=== PATIENT | female | born 1960 | race African-American/Black ===

== ENCOUNTER 2021-01-26 23:48 | Inpatient (IN) | payer OTHER ==
[~2021-01-26] VITALS: Ht 157.5 cm; Wt 62.7 kg
[2021-01-27] VITALS (9 sets, daily range): BP systolic 102–126; BP diastolic 59–92
[2021-01-27] MEDS ORDERED: ONDANSETRON HCL 4MG/2ML INJ IV STA (00:48)
[2021-01-27] MEDS ORDERED: MORPHINE SULFATE 4 MG/ML CPJ (NOT FOR IM USE) IV STA (00:48)
[2021-01-27 01:16] LABS: BASOPHILS % 0.9 % (0.0-2.0); EOSINOPHILS % 0.5 % (0.0-5.0); HEMATOCRIT. 32.8 % (36.0-48.0); HEMOGLOBIN. 10.5 g/dL (12.0-16.0); MEAN CORPUSCULAR HEMOGLOBIN 30.2 pg (28.0-32.0); MEAN CORPUSCULAR VOLUME 94.4 fL (81.0-99.0); MEAN PLATELET VOLUME 7.8 fl (7.4-10.4); MONOCYTES % 13.3 % (2.0-8.0); NEUTROPHILS % 51.3 % (40.0-76.0); PLATELET 410 x1000/uL (130-400); RED BLOOD CELL COUNT 3.47 mill/uL (4.2-5.4); RED CELL DISTRIBUTION WIDTH 15.2 % (11.6-14.6)
[2021-01-27 01:21] LABS: CHLORIDE 112 mEq/L (98-107)
[2021-01-27 03:02] LABS: D-DIMER 5.53 mg/L FEU (<0.50); INR 1.1; PARTIAL THROMBOPLASTIN TIME 29.6 sec (23.4-31.0); PROTHROMBIN TIME 12.1 sec (9.6-11.0)
[2021-01-27] MEDS ORDERED: NITROGLYCERIN OINT 1GM/INCH UDPKT TD ONE (03:30)
[2021-01-27] MEDS ORDERED: FUROSEMIDE 40MG/4ML VIAL IV ONE (03:30)
[2021-01-27] MEDS ORDERED: ASPIRIN 81MG TABLET PO ONE (03:30)
[2021-01-27] MEDS ORDERED: ENOXAPARIN 80MG/0.8ML SYR SUBCUT ONE (05:15)
[2021-01-27] MEDS ORDERED: IOHEXOL-350 100 ML BOTTLE ONE (07:24)
[2021-01-27 10:40] LABS: T4 FREE 0.74 ng/dL (0.76-1.46)
[2021-01-27] MEDS: CLOPIDOGREL 75MG TABLET PO SCH (11:18)
[2021-01-27] MEDS ORDERED: ACETAMINOPHEN 325MG TABLET PO PRN (13:15)
[2021-01-27] MEDS ORDERED: LEVOFLOXACIN 500MG PREMIX 100 ML IV SCH (13:15)
[2021-01-27] MEDS ORDERED: IPRATROPIUM/ALBUTEROL 0.5-3(2.5)MG/3ML NEB HHN PRN (13:15)
[2021-01-27] MEDS ORDERED: MORPHINE SULFATE 2 MG/ML CPJ (NOT FOR IM USE) IV PRN (13:15)
[2021-01-27] MEDS ORDERED: ONDANSETRON HCL 4MG/2ML INJ IV PRN (13:15)
[2021-01-27] MEDS ORDERED: ACETAMINOPHEN 650MG SUPP PR PRN (13:15)
[2021-01-27] MEDS ORDERED: LORAZEPAM 2MG/ML CPJ IV PRN (13:15)
[2021-01-27] MEDS ORDERED: HYDRALAZINE 20MG/ML VIAL IV PRN (13:15)
[2021-01-27] MEDS ORDERED: LACTULOSE 20G/30ML UDC PO PRN (13:15)
[2021-01-27] MEDS ORDERED: BISACODYL 10MG SUPP PR PRN (13:15)
[2021-01-27] MEDS: FUROSEMIDE 40MG/4ML VIAL IVP SCH (14:45)
[2021-01-27] MEDS: FAMOTIDINE 20MG/2ML VIAL IV SCH (14:46)
[2021-01-27] MEDS: LEVOTHYROXINE SODIUM 75MCG TABLET PO SCH (14:46)
[2021-01-27] MEDS ORDERED: LEVOFLOXACIN 750MG PREMIX 150 ML IV SCH (15:00)
[2021-01-27 15:24] LABS: BASOPHILS % 0.7 % (0.0-2.0); EOSINOPHILS % 0.2 % (0.0-5.0); HEMOGLOBIN. 10.5 g/dL (12.0-16.0); LYMPHOCYTES % 25.2 % (20.0-50.0); MEAN CORPUSCULAR HEMOGLOBIN 30.2 pg (28.0-32.0); MEAN CORPUSCULAR VOLUME 97.9 fL (81.0-99.0); MONOCYTES % 10.4 % (2.0-8.0); NEUTROPHILS % 63.5 % (40.0-76.0); PLATELET 359 x1000/uL (130-400); RED BLOOD CELL COUNT 3.47 mill/uL (4.2-5.4); RED CELL DISTRIBUTION WIDTH 16.1 % (11.6-14.6)
[2021-01-27 15:37] LABS: BG BASE EXCESS -4.6 mmol/L (-2.0-2.0); BG CARBOXYHEMOGLOBIN 0.2 % (0.5-1.5); BG FRACTION INSPIRED OXYGEN 21; BG METHEMOGLOBIN 0.2 % (0.0-1.5); BG OXYGEN SATURATION 72.9 % (92.0-98.5); BG OXYHEMOGLOBIN 72.6 % (94.0-97.0); BG PCO2 35.3 mmHg (35.0-45.0); BG PH 7.371 (7.350-7.450); BG PO2 42.5 mmHg (75.0-100.0); BG SAMPLE SITE RIGHT BRACHIAL; BG TOTAL HEMOGLOBIN 10.8 g/dL (12.0-18.0); BG VENT MODE ROOM AIR
[2021-01-27 15:41] LABS: CHLORIDE 110 mEq/L (98-107)
[2021-01-27 15:50] LABS: CREATINE KINASE 179 IU/L (26-192)
[2021-01-27 15:52] LABS: CREATINE KINASE MB FRACTION 6.1 ng/mL (0.5-3.6)
[2021-01-27] MEDS: IPRATROPIUM/ALBUTEROL 0.5-3(2.5)MG/3ML NEB HHN SCH (20:30)
[2021-01-27] MEDS: METOPROLOL TARTRATE 25MG TABLET PO SCH (20:39)
[2021-01-27] MEDS: ATORVASTATIN CALCIUM 20MG TABLET PO SCH (20:39)
[2021-01-27] MEDS ORDERED: TEMAZEPAM 15MG CAPSULE PO PRN (21:00)
[2021-01-27 23:14] LABS: CLARITY URINE CLEAR (CLEAR); COLOR URINE YELLOW (YELLOW); KETONES URINE NEGATIVE (NEGATIVE); LEUKOCYTE ESTERASE URINE NEGATIVE (NEGATIVE); NITRITE URINE NEGATIVE (NEGATIVE); OCCULT BLOOD URINE NEGATIVE (NEGATIVE); PH URINE 5.5 (4.5-8.0); PROTEIN URINE TRACE (NEGATIVE); SPECIFIC GRAVITY URINE 1.015 (1.005-1.030); UROBILINOGEN URINE 0.2 E.U./dL (0.2-1.0)
[2021-01-27 23:35] LABS: CREATINE KINASE MB FRACTION 5.2 ng/mL (0.5-3.6)
[2021-01-28] VITALS (11 sets, daily range): BP systolic 92–117; BP diastolic 53–79
[2021-01-28] MEDS: IPRATROPIUM/ALBUTEROL 0.5-3(2.5)MG/3ML NEB HHN SCH ×4 (01:35→21:51)
[2021-01-28] MEDS: LEVOTHYROXINE SODIUM 75MCG TABLET PO SCH (05:39)
[2021-01-28 06:16] LABS: HEMATOCRIT. 29.7 % (36.0-48.0); HEMOGLOBIN. 9.5 g/dL (12.0-16.0); MEAN CORPUSCULAR HEMOGLOBIN 30.4 pg (28.0-32.0); MEAN PLATELET VOLUME 8.2 fl (7.4-10.4); PLATELET 328 x1000/uL (130-400); RED BLOOD CELL COUNT 3.12 mill/uL (4.2-5.4); RED CELL DISTRIBUTION WIDTH 15.7 % (11.6-14.6)
[2021-01-28 07:51] LABS: CREATINE KINASE MB FRACTION 3.6 ng/mL (0.5-3.6)
[2021-01-28] MEDS: ASPIRIN 81MG TABLET PO SCH (08:26)
[2021-01-28] MEDS: FAMOTIDINE 20MG/2ML VIAL IV SCH (08:26)
[2021-01-28] MEDS: CLOPIDOGREL 75MG TABLET PO SCH (08:26)
[2021-01-28] MEDS: FUROSEMIDE 40MG/4ML VIAL IVP SCH (08:26)
[2021-01-28] MEDS: METOPROLOL TARTRATE 25MG TABLET PO SCH ×2 (08:27→21:41)
[2021-01-28] MEDS ORDERED: ENOXAPARIN 40MG/0.4ML SYR SUBCUT SCH (09:00)
[2021-01-28 14:02] LABS: PLATELET ESTIMATE NORMAL
[2021-01-28] MEDS: ATORVASTATIN CALCIUM 20MG TABLET PO SCH (21:40)
[2021-01-29] VITALS (16 sets, daily range): BP systolic 94–136; BP diastolic 58–84
[2021-01-29] MEDS: IPRATROPIUM/ALBUTEROL 0.5-3(2.5)MG/3ML NEB HHN SCH ×4 (01:57→20:59)
[2021-01-29 05:48] LABS: HEMATOCRIT. 28.3 % (36.0-48.0); HEMOGLOBIN. 9.2 g/dL (12.0-16.0); MEAN CORPUSCULAR HEMOGLOBIN 30.2 pg (28.0-32.0); MEAN CORPUSCULAR VOLUME 93.4 fL (81.0-99.0); PLATELET 338 x1000/uL (130-400); RED BLOOD CELL COUNT 3.03 mill/uL (4.2-5.4)
[2021-01-29] MEDS ORDERED: LEVOTHYROXINE SODIUM 100MCG TABLET PO SCH (06:50)
[2021-01-29] MEDS: ASPIRIN 81MG TABLET PO SCH (08:00)
[2021-01-29] MEDS: FUROSEMIDE 40MG/4ML VIAL IVP SCH (08:00)
[2021-01-29] MEDS: CLOPIDOGREL 75MG TABLET PO SCH (08:01)
[2021-01-29] MEDS ORDERED: FAMOTIDINE 20MG TABLET PO SCH (09:00)
[2021-01-29] MEDS ORDERED: ENOXAPARIN 30MG/0.3ML SYR SUBCUT SCH (09:00)
[2021-01-29] MEDS: METOPROLOL TARTRATE 25MG TABLET PO SCH ×2 (09:00→21:27)
[2021-01-29] MEDS ORDERED: LEVOFLOXACIN 250MG TABLET PO SCH (09:00)
[2021-01-29 11:34] LABS: BG CARBOXYHEMOGLOBIN 0.3 % (0.5-1.5); BG DEOXYHEMOGLOBIN 4.1 % (0.0-5.0); BG HCO3 ACT 21.2 mmol/L (22.0-26.0); BG METHEMOGLOBIN 0.2 % (0.0-1.5); BG OXYGEN SATURATION 95.9 % (92.0-98.5); BG OXYHEMOGLOBIN 95.4 % (94.0-97.0); BG PCO2 27.6 mmHg (35.0-45.0); BG PH 7.504 (7.350-7.450); BG PO2 79.5 mmHg (75.0-100.0); BG SAMPLE SITE RIGHT RADIAL; BG TOTAL HEMOGLOBIN 10.6 g/dL (12.0-18.0); BG VENT MODE ROOM AIR
[2021-01-29] MEDS ORDERED: ASPI-1497 MT (13:39)
[2021-01-29] MEDS ORDERED: ALBU90AE INH (13:39)
[2021-01-29] MEDS ORDERED: CLOP-31 MT (13:39)
[2021-01-29] MEDS ORDERED: METO25TA6 PO (13:39)
[2021-01-29] MEDS ORDERED: ATOR20TA PO (13:39)
[2021-01-29] MEDS ORDERED: FAMO-135 PO (13:39)
[2021-01-29] MEDS ORDERED: LEVO250T58 MT (13:39)
[2021-01-29] MEDS ORDERED: LEVO100T MT (13:39)
[2021-01-29 14:11] LABS: PLATELET ESTIMATE NORMAL
[2021-01-29] MEDS: ATORVASTATIN CALCIUM 20MG TABLET PO SCH (21:26)
== END 2021-01-29 23:56 | disposition home health service (06) | DRG 190 ==
LOC: ER 23:48 → ENRESERV 01-27 06:50 → 3WST 01-27 08:51
PROVIDERS: ADMIT Internal Medicine; ATTEND Internal Medicine
DX: I21.4 Non-ST elevation (NSTEMI) myocardial infarction (principal); J96.01 Acute respiratory failure with hypoxia; N17.0 Acute kidney failure with tubular necrosis; I50.23 Acute on chronic systolic (congestive) heart failure; J18.9 Pneumonia, unspecified organism; I31.3 Pericardial effusion (noninflammatory); I11.0 Hypertensive heart disease with heart failure; Z86.74 Personal history of sudden cardiac arrest; Z20.822 Contact with and (suspected) exposure to COVID-19; D64.9 Anemia, unspecified; E03.9 Hypothyroidism, unspecified; I25.10 Atherosclerotic heart disease of native coronary artery without angina pectoris; D47.3 Essential (hemorrhagic) thrombocythemia; I25.5 Ischemic cardiomyopathy; Z95.5 Presence of coronary angioplasty implant and graft; R10.9 Unspecified abdominal pain; R79.89 Other specified abnormal findings of blood chemistry; I25.2 Old myocardial infarction
CPT/HCPCS: 36415; 36600; 71045; 71275; 74018; 80048; 80053; 80061; 81003; 82375; 82550; 82553; 82805; 83036; 83880; 84439; 84443; 84484; 85025; 85379; 86850; 86900; 87426; 93005; 93306; 93880; 93970; 94640; 97162; 99291; J1650; J1940; J1956; J2270; J2405; J3490; Q9967

== ENCOUNTER 2023-10-04 10:42 | Emergency (ER) | payer OTHER ==
[~2023-10-04] VITALS: Ht 165.1 cm; Wt 61.0 kg
[~2023-10-04 10:42] MED LIST: ALBU90AE INH; ASPI-1497 MT; ATOR20TA PO; CLOP-31 MT; FAMO-135 PO; LEVO100T MT; LEVO250T74 MT; METO25TA6 PO
[2023-10-04 10:54] VITALS: BP 175/119; PULSE 71; RESP 12; TEMP 98; O2SAT 100
[2023-10-04 12:28] LABS: BASOPHILS % 1.2 % (0.0-2.0); DIFFERENTIAL COMMENT 0; EOSINOPHILS % 1.2 % (0.0-5.0); HEMATOCRIT. 36.6 % (36.0-48.0); HEMOGLOBIN. 11.1 g/dL (12.0-16.0); LYMPHOCYTES % 24.4 % (20.0-50.0); MEAN CORPUSCULAR HEMOGLOBIN 29.5 pg (28.0-32.0); MEAN CORPUSCULAR HGB CONC 30.3 g/dL (31.0-37.0); MEAN CORPUSCULAR VOLUME 97.2 fL (81.0-99.0); MEAN PLATELET VOLUME 7.8 fl (7.4-10.4); MONOCYTES % 6.2 % (2.0-8.0); PLATELET 231 x1000/uL (130-400); RED BLOOD CELL COUNT 3.76 mill/uL (4.2-5.4); RED CELL DISTRIBUTION WIDTH 15.6 % (11.6-14.6); WHITE BLOOD COUNT 5.8 x1000/uL (4.5-11.0)
[2023-10-04 12:38] LABS: PROTHROMBIN TIME 10.9 sec (9.6-11.0)
[2023-10-04 13:15] LABS: CARBON DIOXIDE 21 mEq/L (21-32); CHLORIDE 109 mEq/L (98-107); GLUCOSE 67 mg/dL (70-105); POTASSIUM 3.8 mEq/L (3.5-5.1); SODIUM 140 mEq/L (136-145)
[2023-10-04 13:16] LABS: CALCIUM 9.6 mg/dL (8.7-10.4); CREATININE 1.3 mg/dL (0.6-1.0); UREA NITROGEN BLOOD 19 mg/dL (9-23)
[2023-10-04 13:17] LABS: ALANINE AMINOTRANSFERASE 10 IU/L (10-49); ALBUMIN 4.4 g/dL (3.2-4.8); ASPARTATE AMINOTRANSFERASE 31 IU/L (<34); BILIRUBIN DIRECT 0.2 mg/dL (<=3.0); BILIRUBIN TOTAL 0.7 mg/dL (0.1-1.0); PROTEIN TOTAL 8.3 g/dL (6.0-8.3); TROPONIN I HIGH SENSITIVITY 16 ng/L (3.0-34)
[2023-10-04 13:46] LABS: THYROID STIMULATING HORMONE > 150.00 uIU/mL (0.55-4.78)
[2023-10-04 14:12] LABS: T4 FREE 0.46 ng/dL (0.89-1.76)
[2023-10-04 15:29] LABS: TROPONIN I HIGH SENSITIVITY 18 ng/L (3.0-34)
== END 2023-10-04 16:03 | disposition home or self-care (01) ==
LOC: ER 10:42
DX: R06.00 Dyspnea, unspecified (principal); E03.9 Hypothyroidism, unspecified; I10 Essential (primary) hypertension; I25.2 Old myocardial infarction; Z79.899 Other long term (current) drug therapy
CPT/HCPCS: 36415; 71045; 80048; 80076; 83880; 84439; 84443; 84484; 85025; 93005; 99285